=== PATIENT | male | born 1950 | race Caucasian/White ===

== ENCOUNTER 2019-04-30 11:25 | Inpatient (IN) ==
[2019-04-30] MEDS ORDERED: *HR* Midazolam HCl 5 MG/5 ML VIAL IVP ONE ×2 (12:38→13:04)
[2019-04-30] MEDS ORDERED: Simethicone 40 MG/0.6 ML MLS IR ONE (12:38)
[2019-04-30] MEDS ORDERED: *HR* FentaNYL (PF) 100 MCG/2 ML VIAL IVP ONE (12:38)
[2019-04-30] MEDS ORDERED: Tetracaine/Benzocaine/Butamben 1 SPRAY AEROSOL MM ONE (12:38)
--- NOTE | 2019-04-30 12:38 | History & Physical Report ---
Date of Encounter: 04/30/19 Time of Encounter: 12:37 24 Hour HP Update - Instructions Instructions: If the History and Physical is less than 30 days old and was completed prior to A.M. admission and or procedure and has NOT been updated on calendar day of procedure please complete this update prior to performing procedure. - Update Patient reports changes in Medical Condition: No Changes in examination, assessment, or condition: No Changes in Medication: No Preop tests/diagnostics Reviewed: Yes Surgery Remains Indicated: Yes Consent for Planned Operative Procedure(s) Verified: Yes
--- NOTE | 2019-04-30 12:38 | Pre-Sedation Evaluation ---
Pre-sedation evaluation - Pre-sedation checklist Date of procedure: 04/30/19 Procedure: egd / colonoscopy Recent Vitals: Last Vital Signs Temp 98.1 F 04/30/19 12:06 Pulse 79 04/30/19 12:06 Resp 16 04/30/19 12:06 BP 129/69 04/30/19 12:06 Pulse Ox 100 04/30/19 12:06 H&P (including ROS) documented in medical record: Yes Previous reaction to sedatives/anesthetics: No Dietary Status: NPO after Midnight Dentition: dentures removed Possible difficult airway: No ASA Classification *see protocol: CLASS II-Mild systemic disease
[2019-04-30] MEDS ORDERED: 0.9 % Sodium Chloride 1,000 ML IVC SCH (12:45)
[2019-04-30] MEDS ORDERED: *HR* FentaNYL (PF) 100 MCG/2 ML VIAL ONE (13:05)
[2019-04-30] MEDS ORDERED: Ondansetron 4 MG/2 ML VIAL IVP PRN (15:37)
[2019-04-30] MEDS ORDERED: *HR* Promethazine 25 MG/ML VIAL IVP PRN (15:37)
[2019-04-30] MEDS ORDERED: Isovue-370 500 ML BOTTLE IVP ONE (15:37)
[2019-04-30] MEDS ORDERED: OXYCODONE Oral CONC 10 MG/0.5 ML ORAL.SYG SL PRN (15:37)
[2019-04-30] MEDS: Pantoprazole 40 MG VIAL IVP SCH (16:44)
[2019-05-01 07:07] LABS: Hemoglobin 8.3 g/dL (12.9-16.9); Immature Granulocytes % 0.2 % (0-4)
[2019-05-01 07:09] LABS: Basophils % 0.3 %; Eosinophils # 0.2 K/mcL (0.0-0.6); Eosinophils % 2.3 %; Hematocrit 29.5 % (37.5-50.1); Lymphocytes # 1.4 K/mcL (0.6-4.6); Lymphocytes % 21.6 %; Mean Corpuscular HGB Conc 28.1 g/dL (31.6-35.5); Mean Corpuscular Volume 71.3 fL (83.0-100.0); Mean Platelet Volume 10.2 fL (9.4-12.4); Monocytes # 0.7 K/mcL (0.0-1.3); Monocytes % 10.9 %; Neutrophils # 4.2 K/mcL (1.6-8.9); Platelet Count 204 K/mcL (140-400); Red Blood Count 4.14 M/mcL (4.19-5.50); Red Cell Distribution Width 17.1 % (11.5-14.5); Segmented Neutrophils % 64.7 %; White Blood Count 6.5 K/mcL (4.3-11.1)
[2019-05-01 07:15] LABS: INR 1.1; Prothrombin Time 12.1 Seconds (9.4-12.1)
[2019-05-01 07:17] LABS: Anisocytosis 1+ (Not Present); Hypochromasia Present (Not Present); Microcytosis Present (Not Present); Platelet Estimate Normal (Normal)
[2019-05-01] MEDS ORDERED: Nitroglycerin 0.4 MG TAB.SUBL SL PRN (07:19)
[2019-05-01 07:20] LABS: BUN/Creatinine Ratio 18 (6-26); Blood Urea Nitrogen 13 mg/dL (8-23); Calcium 8.9 mg/dL (8.6-10.3); Carbon Dioxide 22 mEq/L (23-29); Chloride 103 mEq/L (98-107); Glucose 96 mg/dL (70-105); Magnesium 2.1 mg/dL (1.6-2.6); Osmolality,Calculated 284 (280-300); Phosphorous 2.8 mg/dL (2.7-4.5); Potassium 3.9 mEq/L (3.5-5.1); Sodium 137 mEq/L (136-145); eGFR For African Americans > 60 (> 60); eGFR For Non-African Americans > 60 (> 60)
[2019-05-01] MEDS ORDERED: Isovue-370 500 ML BOTTLE IVP ONE ×2 (07:21)
[2019-05-01 07:30] LABS: Carcinoembryonic Antigen 1.1 ng/mL (Less than 5.0)
[2019-05-01] MEDS ORDERED: Isovue-370 500 ML BOTTLE PO ONE (07:31)
[2019-05-01 07:45] LABS: % Iron Saturation 5 % (20-55); Iron 22 mcg/dL (65-175); Transferrin 324 mg/dL (203-362)
[2019-05-01] MEDS: Pantoprazole 40 MG VIAL IVP SCH (08:19)
[2019-05-01] MEDS: Aspirin Enteric Coated 81 MG Tablet PO SCH (08:19)
--- NOTE | 2019-05-01 10:28 | General Surgery Progress Note ---
Date of Encounter: 05/01/19 Time of Encounter: 10:26 - Assessment and Plan (1) Colonic mass Current Visit: Yes Status: Acute Colonoscopy 04/30/[address] Correa is noted to have a fun gating partially obstructing medium-size mass at the ileocecal valve, circumferential, losing present, biopsies taken pathology pending. CT abd/pelvis w/IV and oral , CT chest w.IV contrast today consistent with colonoscopy, likely primary lesion in the cecum. No evidence for concern of metastatic lesions in the chest Clear liquid diet NPO at midnight positive IV fluids until NPO is resumed supportive care and discomfort management will plan for surgical intervention in the next 24 to 48 hours (2) ASHD (arteriosclerotic heart disease) Current Visit: Yes Status: Acute Per record review, left heart 2014 was with hundred percent occluded distal right coronary artery receiving collateral flow from the left, EF 55%, basal inferior hypo kinesis, 70% stenosis in the proximal LAD, which was supplying collateral flow to the inferior wall and in the distal right coronary artery, 50% stenosis in the mid-LAD, 60% in the 1st dyadic, nondominant circumflex 70% lesion in the proximal circumflex, 10% stenosis in the ramus, s/p CABG 2015 GENAO-LAD. Last saw Dr. Munir Ashton on 04/24/2019 who was planning a repeat left heart catheterization given patient's complaints of fatigue, exertional dyspnea and some precordial chest tightness. He did have an abnormal stress test in March 2018 which noted a medium-size fixed perfusion defect involving the inferior wall. His EKGs historically show evidence of old inferior myocardial infarction, left axis deviation, prolonged NC and some PACs. EKG was obtained on admission which is consistent with past findings. We will consult cardiology for cardiovascular risk stratification, pre,ann marie, and postoperative recommendations to optimize cardiovascular outcomes. Spoke with Dr.'s Rivera, who will evaluate the patient (3) Hyperlipidemia Current Visit: Yes Status: Acute Intolerant statins with perceived G.I. symptoms. On Zetia continue home meds Qualifiers: Hyperlipidemia type: unspecified Qualified Code(s): E78.5 - Hyperlipidemia, unspecified Subjective Patient reports: no new complaints, pain is less, voiding w/o difficulty, flatus, no bowel movement, afebrile Narrative: denies pain. States he is hungry Objective Vital Signs - Last 8 Hours Temp Pulse Resp BP Pulse Ox 05/01/19 08:13 97.5 F L 75 18 131/66 99 05/01/19 04:20 98.1 F 75 17 122/58 98 Intake and Output 04/30/19 05/01/19 05/01/19 23:59 07:59 15:59 Intake Total 700 / 1000 Output Total 600 / 600 Balance 700 / 1000 -600 / -600 Intake: IV Fluids 700 / 1000 0.9 % Sodium Chloride 1,000 ML 700 / 1000 @ 50 mls/hr IVC .Q20H [facility] Rx#: [id number] Output: Urine 600 / 600 Other: Weight 86 kg Blood Glucose* 99 95 Patient Weight 05/01/19 23:59 Weight 86 kg - General physical appearance well developed, well nourished, no distress, no pain - ENT atraumatic, normocephalic - Neck Neck exam: trachea midline - Respiratory normal expansion, clear to auscultation - Cardiovascular Cardiovascular exam: Present: RRR, murmurs - Abdomen Abdomen: Present: bowel sounds present, soft, non tender - Integumentary no rash - Neurologic normal sensation - Musculoskeletal normal gait, normal posture - Psychiatric oriented to time, oriented to person, oriented to place - Labs 05/01/19 06:09 05/01/19 06:09 Diabetes panel 05/01/19 Range/Units 06:09 Sodium 137 (136-145) mEq/L Potassium 3.9 (3.5-5.1) mEq/L Chloride 103 (98-107) mEq/L Carbon Dioxide 22 L (23-29) mEq/L BUN 13 (8-23) mg/dL Creatinine 0.74 (0.70-1.30) mg/dL Glucose 96 (70-105) mg/dL Calcium 8.9 (8.6-10.3) mg/dL Calcium panel 05/01/19 Range/Units 06:09 Calcium 8.9 (8.6-10.3) mg/dL Phosphorus 2.8 (2.7-4.5) mg/dL Pituitary panel 05/01/19 Range/Units 06:09 Sodium 137 (136-145) mEq/L Potassium 3.9 (3.5-5.1) mEq/L Chloride 103 (98-107) mEq/L Carbon Dioxide 22 L (23-29) mEq/L BUN 13 (8-23) mg/dL Creatinine 0.74 (0.70-1.30) mg/dL Glucose 96 (70-105) mg/dL Calcium 8.9 (8.6-10.3) mg/dL Adrenal panel 05/01/19 Range/Units 06:09 Sodium 137 (136-145) mEq/L Potassium 3.9 (3.5-5.1) mEq/L Chloride 103 (98-107) mEq/L Carbon Dioxide 22 L (23-29) mEq/L BUN 13 (8-23) mg/dL Creatinine 0.74 (0.70-1.30) mg/dL Glucose 96 (70-105) mg/dL Calcium 8.9 (8.6-10.3) mg/dL Consult Discharge Plan - Plan Referrals: Paulino Lucero MD [Primary Care Provider] -
[2019-05-01] MEDS: Iron Sucrose Complex 250 MG in 0.9 % Sodium Chloride 250 ML IVPB SCH (10:50)
--- NOTE | 2019-05-01 10:51 | Electrocardiograph Report ---
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
--- NOTE | 2019-05-01 12:23 | Cardiology Consult Note ---
<Varghese Javier R - Last Filed: 05/01/19 12:23> Date of Encounter: 05/01/19 Time of Encounter: 12:20 Assessment and Plan (1) Pre-operative cardiovascular examination Current Visit: Yes Status: Acute CAD s/p CABG in 2014. Colonoscopy 04/30/[address] Correa, noted to have a partially obstructing medium-size mass, likely primary lesion in the cecum. Pending surgical intervention in the next 24-48 hours. Pt has noted exertional dyspnea and fatigue for a prolonged period of time. Nuclear stress test completed 04/04/19 inferior infarct with ann marie infarct ischemia. Distal lateral and apical perfusion defects during stress may represent ischemia. Gated EF 61%. TTE 04/04/19 LVEF 60%. Mild LVDD. Normal RV. Mild WA. No phtn. LHC ordered on 04/24/19. Pre-procedure labs HGB was found to be 8.5, down from 13.7 in 2018. LHC was cancelled. He can push mow for ~15 minutes before he has to stop d/t dyspnea. Rare occasions of exertional chest pain relieved with nitro. ECG similar to 2014, evidence of prior inferior infarct. EF is preserved with normal wall motion. Given abnormal stress test pt is moderate-high risk for surgery from a cardiac standpoint for a necessary procedure. No further cardiac testing is warranted prior to surgery. He is not a candidate for LHC given anemia and colonic mass that needs surgical intervention. Recommend continuing BB perioperatively and 81mg ASA if able. Anticipate sign off once seen and evaluated by Dr. Reina. (2) CAD (coronary artery disease) Current Visit: Yes Status: Acute Hx CABG in 2014. As above. Continue BB, ASA, Zetia. Hx of statin intolerance. Qualifiers: Coronary Disease-Associated Artery/Lesion type: [place] artery [place] vs. transplanted heart: squ[place] heart Associated angina: angina presence unspecified Qualified Code(s): I25.10 - Atherosclerotic heart disease of [place] coronary artery without angina pectoris Discussion w patient/family: The assessment and plan as outlined above was discussed with the patient and/or family members who expressed understanding and agreement. All questions were answered. Thank you for involving us in the care of your patient. Please call with any questions. I will discuss all the above with Dr. Reina and make changes as necessary. History of Present Illness Consult date: 05/01/19 Requesting physician: Lorena Metzger Consult reason: pre-op Chief complaint: fatigue, exertional dyspnea History of present illness: Mr. Merino is a 68 year old male with PMH of CAD s/p CABG in 2014 (GENAO-LAD and VG-LCx), HTN, HLD intolerant to statins that had a colonoscopy 04/30/[address] Correa, noted to have a partially obstructing medium-size mass, likely primary lesion in the cecum. No evidence for concern of metastatic lesions in the chest. He is pending surgical intervention in the next 24-48 hours. Cardiology consulted for pre-op risk stratification. Pt has noted exertional dyspnea and f atigue for a prolonged period of time. Dr Ashton ordered an outpt stress test completed 04/04/19 that showed a medium sized, partially fixed perfusion defect involving inferior wall representing infarct with ann marie infarct ischemia. Distal lateral and apical perfusion defects during stress may represent ischemia. Gated EF 61%. TTE 04/04/19 LVEF 60%. Mild LVDD. Normal RV structure and function. Mild WA. No phtn. A left heart cath was initially ordered on 04/24/[address] Ashton, but on pre-procedure labs, HGB was found to be 8.5, down from 13.7 in 2018. LHC was cancelled and pt was referred to GI, who then did the colonoscopy and mass was found. Pt reports the most active thing he does is mow his grass. He can mow for ~15 minutes before he has to stop due to dyspnea. He reports rare occasions of exertional chest pain relieved with nitro. Past Med Surg Social Fam HX - Past Medical History Medical history: arthritis, coronary artery disease, hyperlipidemia - Past Surgical History Surgical History: appendectomy, cholecystectomy, coronary bypass (CABG), tonsillectomy Additional surgical history: vein stripping, bells palsy - Social History Smoking Status: Never smoker Medications and Allergies Aspirin [Lo-Dose Aspirin EC] 81 mg PO DAILY 04/30/19 [History] Ezetimibe [Zetia] 10 mg PO DAILY 04/30/19 [History] Lisinopril-HCTZ 10-12.5 [Prinzide 10-12.5] 1 tab PO BID 04/30/19 [History] Metoprolol Tartrate [Lopressor] 25 mg PO BID 04/30/19 [History] Nitroglycerin [Nitrostat] 0.4 mg SL Q5M PRN 04/30/19 [History] Allergy/AdvReac Type Severity Reaction Status Date / Time No Known Allergies Allergy Verified 04/30/19 17:58 All Systems Review: The remainder of the systems were reviewed and are negative - Constitutional Constitutional: fatigue - Cardiovascular Cardiovascular: as per HPI, chest pain with exertion, dyspnea on exertion - Respiratory Respiratory: dyspnea Physical Examination Vital Signs, Last 4 Hours Temp Pulse Resp BP Pulse Ox 05/01/19 11:47 98.1 F 64 18 115/68 98 Vital Signs Temp Pulse Resp BP Pulse Ox 05/01/19 11:47 98.1 F 64 18 115/68 98 05/01/19 08:13 97.5 F L 75 18 131/66 99 05/01/19 04:20 98.1 F 75 17 122/58 98 05/01/19 00:35 97.8 F 72 17 108/53 97 04/30/19 20:02 97.8 F 66 17 112/47 97 04/30/19 15:35 97.5 F L 64 16 112/58 100 04/30/19 15:33 97.5 F L 64 16 112/58 100 04/30/19 13:35 98.1 F 80 17 72/39 97 04/30/19 13:25 84 18 117/57 97 04/30/19 13:20 84 18 125/50 100 04/30/19 13:15 88 18 125/54 100 04/30/19 12:38 98.1 F 79 16 129/69 100 Intake and Output 04/30/19 05/01/19 05/01/19 23:59 07:59 15:59 Intake Total 700 / 1000 Output Total 600 / 600 Balance 700 / 1000 -600 / -600 Intake: IV Fluids 700 / 1000 0.9 % Sodium Chloride 1,000 ML 700 / 1000 @ 50 mls/hr IVC .Q20H [facility] Rx#: [id number] Output: Urine 600 / 600 Other: Weight 86 kg Blood Glucose* 99 95 83 Patient Weight 05/01/19 23:59 Weight 86 kg General: Conversant, No Apparent Distress HEENT: Atraumatic, Normocephaly, Mucus Membranes Moist Neck: No JVD, Normal carotid pulses Cardiac: Reg Rate and Rhythm, Normal S1 and S2, No Murmur Lungs: Normal Breath Sounds, No Wheeze, Rales, Rhonchi Neuro: Alert and responsive, No focal deficits noted Abdomen: Soft, Non-Tender Skin: No rashes noted on visualized skin Musculoskeletal: No Chest Wall Tenderness Extremities: No Clubbing, No Cyanosis, No Edema, Normal Pulses Results 05/01/19 06:09 05/01/19 06:09 Lab Results 05/01/19 05/01/19 05/01/19 06:09 06:09 06:09 WBC 6.5 Hgb 8.3 L Hct 29.5 L Plt Count 204 INR 1.1 Sodium 137 Potassium 3.9 Chloride 103 Carbon Dioxide 22 L BUN 13 Creatinine 0.74 Glucose 96 Calcium 8.9 Magnesium 2.1 Short CBC 05/01/19 Range/Units 06:09 WBC 6.5 (4.3-11.1) K/mcL Hgb 8.3 L (12.9-16.9) g/dL Hct 29.5 L (37.5-50.1) % Plt Count 204 (140-400) K/mcL Neutrophils # 4.2 (1.6-8.9) K/mcL BMP 05/01/19 Range/Units 06:09 Sodium 137 (136-145) mEq/L Potassium 3.9 (3.5-5.1) mEq/L Chloride 103 (98-107) mEq/L Carbon Dioxide 22 L (23-29) mEq/L BUN 13 (8-23) mg/dL Creatinine 0.74 (0.70-1.30) mg/dL Glucose 96 (70-105) mg/dL Calcium 8.9 (8.6-10.3) mg/dL Impressions Abdomen/Pelvis CT 05/01/19 09:45 IMPRESSION: 1. Mild wall thickening of the cecum, suspicious for a primary colonic neoplasm. Otherwise, no evidence of a colonic mass. No associated obstruction. 2. Top-normal size right lower quadrant lymph nodes, which measure 4-5 mm in size. These are either reactive or metastatic. 3. 1.2 cm well corticated lucency within the T4 vertebral body. This is favored to be an atypical hemangioma. Metastatic disease is felt to be unlikely. Consider further evaluation with contrast enhanced MRI or bone scan to confirm a benign etiology. D/ / 05/01/2019 11:25:17 Paulino William MD / gloria Interpreting Provider: Paulino William MD Chest CT 05/01/19 09:45 IMPRESSION: 1. Mild wall thickening of the cecum, suspicious for a primary colonic neoplasm. Otherwise, no evidence of a colonic mass. No associated obstruction. 2. Top-normal size right lower quadrant lymph nodes, which measure 4-5 mm in size. These are either reactive or metastatic. 3. 1.2 cm well corticated lucency within the T4 vertebral body. This is favored to be an atypical hemangioma. Metastatic disease is felt to be unlikely. Consider further evaluation with contrast enhanced MRI or bone scan to confirm a benign etiology. D/ / 05/01/2019 11:25:17 Paulino William MD / gloria Interpreting Provider: Paulino William MD Active Medications Aspirin (Aspirin Ec) 81 mg PO DAILY WIN Stop: 10/31/19 09:01 Last Admin: 05/01/19 08:19 Dose: 81 mg Documented by: Lisinopril/HCTZ (Prinzide 10-12.5) 1 each PO BID WIN Stop: 10/31/19 09:01 Last Admin: 05/01/19 08:19 Dose: 1 each Documented by: Iron Sucrose 250 mg/ Sodium (Chloride) 262.5 mls @ 130 mls/hr IVPB DAILY WIN Stop: 05/05/19 09:16 Last Admin: 05/01/19 10:50 Dose: 130 mls/hr Documented by: Sodium Chloride (0.9 % Sodium Chloride) 1,000 mls @ 100 mls/hr IVC .Q10H WIN Stop: 11/01/19 00:02 Metoprolol Tartrate (Lopressor) 25 mg PO BID WIN Stop: 10/31/19 09:01 Last Admin: 05/01/19 08:19 Dose: 25 mg Documented by: Nitroglycerin (Nitroglycerin) 0.4 mg SL Q5MPRN PRN PRN Reason: Chest Pain Stop: 10/31/19 07:20 Ondansetron HCl (Zofran) 4 mg IVP Q6HR PRN PRN Reason: Nausea And Vomiting Stop: 10/30/19 15:38 Oxycodone HCl (Oxycodone Oral Conc) 5 mg SL Q4HR PRN; Protocol PRN Reason: mild to moderate pain Stop: 10/30/19 15:38 Pantoprazole Sodium (Protonix) 40 mg IVP DAILY WIN Stop: 10/30/19 15:38 Last Admin: 05/01/19 08:19 Dose: 40 mg Documented by: Promethazine HCl (Phenergan) 12.5 mg IVP Q6HR PRN PRN Reason: Nausea And Vomiting Stop: 10/30/19 15:38 - Imaging and Cardiology Stress Test: report reviewed Echo: report reviewed - EKG Interpretation EKG results cardiology: personally reviewed Consult Discharge Plan - Plan Referrals: Paulino Lucero MD [Primary Care Provider] - <Nettie Reina - Last Filed: 05/01/19 14:34> Date of Encounter: 05/01/19 - Attending Attestation I examined this patient and my medical decision-making was reviewed with the C RECOVERY ASSISTANT. I agree with the documented findings, disposition and treatment plan. Mr. Merino was recently diagnosed with a partially obstructing mass, likely a lesion in the cecum concerning for malignancy. This was discovered incidentally in setting of cardiac workup demonstrating abnormal stress testing. Patient denies active chest pain. Endorses dyspnea and fatigue. LV systolic function remains normal. At this time, we recommend proceeding with surgery with known intermediate to high risk for cardiac event. Further cardiac testing will delay patient's necessary surgery to remove a potential malignancy and increase his risk of a bleeding event in setting of new anemia. This was discussed with the patient and his family at the bedside. Patient expressed understanding and agreement. Recommend continuing BB perioperatively and aspirin if able. Please call with questions. Signing off. Assessment and Plan Discussion w patient/family: The assessment and plan as outlined above was discussed with the patient and/or family members who expressed understanding and agreement. All questions were answered. Thank you for involving us in the care of your patient. Please call with any questions. History of Present Illness History of present illness: Mr. Merino is a 68 year old male All Systems Review: The remainder of the systems were reviewed and are negative Physical Examination Vital Signs, Last 4 Hours Temp Pulse Resp BP Pulse Ox 05/01/19 11:47 98.1 F 64 18 115/68 98 Results 05/01/19 06:09 05/01/19 06:09 Lab Results 05/01/19 05/01/19 05/01/19 06:09 06:09 06:09 WBC 6.5 Hgb 8.3 L Hct 29.5 L Plt Count 204 INR 1.1 Sodium 137 Potassium 3.9 Chloride 103 Carbon Dioxide 22 L BUN 13 Creatinine 0.74 Glucose 96 Calcium 8.9 Magnesium 2.1
--- NOTE | 2019-05-01 17:26 | Anesthesia Evaluation PreOp ---
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 Any Significant HX Other Medical History: Bleeding (BLOOD LOSS ANEMIA), Other (FUNGATING ILEOCECAL TUMOR) Anesthesia History: No Prior Anesthetic Complications, Past Anesthesia Medications and Allergies Aspirin [Lo-Dose Aspirin EC] 81 mg PO DAILY 04/30/19 [History] Ezetimibe [Zetia] 10 mg PO DAILY 04/30/19 [History] Lisinopril-HCTZ 10-12.5 [Prinzide 10-12.5] 1 tab PO BID 04/30/19 [History] Metoprolol Tartrate [Lopressor] 25 mg PO BID 04/30/19 [History] Nitroglycerin [Nitrostat] 0.4 mg SL Q5M PRN 04/30/19 [History] Allergy/AdvReac Type Severity Reaction Status Date / Time No Known Allergies Allergy Verified 04/30/19 17:58 - Meds/Allergy Pre-op Review Medications Reviewed: Yes Allergies Reviewed: Yes Beta Blockers on Current Med List: Yes (METOPROLOL 25 MG BID) If Beta Blockers taken, Date/Time (Last Dose taken): SEE [facility] Anesthesia Results - Labs 05/01/19 06:09 05/01/19 06:09 Laboratory Tests 05/01/19 05/01/19 06:09 06:09 PT 12.1 INR 1.1 Calcium 8.9 Phosphorus 2.8 Magnesium 2.1 - Imaging EKG: report reviewed (SINUS RHYTHM, PATTERN CONSISTENT WITH PULMONARY DISEASE, INFERIOR MYOCARDIAL INFARCTION, PROBABLY OLD WITH POSTERIOR EXTENSION) Anesthesia Exam Vital Signs/O2 Sat, Most Current Temp Pulse Resp BP Pulse Ox 98.3 F 63 16 101/55 98 05/01/19 16:41 05/01/19 16:41 05/01/19 16:41 05/01/19 16:41 05/01/19 16:41 Weight: 86 KG - BMI 27 NPO (# of Hours): >MN - HEENT Mallampati: III Teeth: Normal Denture Type: Upper: Partial (SINGLE TOOTH ) - Cardiac Rhythm: Regular - Pulmonary Breath Sounds: bilateral Clear Respiratory Effort: Symmetrical Anesthesia Assess/Plan ASA Score: 3 Anesthetic Plan: General Autologous Blood: Yes (POSSIBLE) Monitoring Plan: Standard Monitors, A-Line (POSSIBLE) Recovery Plan: PACU Anes Supervising Prov Stmt: AM CBC & T&S ORDERED
[2019-05-02] MEDS: 0.9 % Sodium Chloride 1,000 ML IVC SCH ×3 (00:15→20:35)
[2019-05-02 05:22] LABS: Hematocrit 27.5 % (37.5-50.1); Mean Corpuscular HGB Conc 29.1 g/dL (31.6-35.5); Mean Corpuscular Hemoglobin 20.5 pg (28.0-33.3); Mean Corpuscular Volume 70.5 fL (83.0-100.0); Mean Platelet Volume 10.7 fL (9.4-12.4); Platelet Count 231 K/mcL (140-400); Red Cell Distribution Width 17.2 % (11.5-14.5); White Blood Count 6.1 K/mcL (4.3-11.1)
[2019-05-02] MEDS: Pantoprazole 40 MG VIAL IVP SCH (08:18)
[2019-05-02] MEDS: Aspirin Enteric Coated 81 MG Tablet PO SCH (08:19)
[2019-05-02] MEDS: Iron Sucrose Complex 250 MG in 0.9 % Sodium Chloride 250 ML IVPB SCH (08:20)
[2019-05-02] MEDS ORDERED: *HR* Propofol 200 MG/20 ML VIAL IVP ONE (14:24)
[2019-05-02] MEDS ORDERED: *HR* FentaNYL (PF) 100 MCG/2 ML VIAL ONE (14:24)
[2019-05-02] MEDS ORDERED: Dexamethasone 4 MG/ML VIAL ONE (14:25)
[2019-05-02] MEDS ORDERED: Lidocaine -MPF 2% 2 ML VIAL ONE ×2 (14:25→16:11)
[2019-05-02] MEDS ORDERED: Ondansetron 4 MG/2 ML VIAL ONE (14:25)
[2019-05-02] MEDS ORDERED: *HR* Succinylcholine 200 MG/10 ML VIAL IVP ONE (14:25)
[2019-05-02] MEDS ORDERED: *HR* Rocuronium Bromide 50 MG/5 ML VIAL ONE (14:25)
[2019-05-02] MEDS ORDERED: *HR* Phenylephrine 10 MG/ML VIAL ONE (14:25)
[2019-05-02] MEDS ORDERED: Heparin 1,000 UNITS/500 mL 500 ML ONE (14:32)
[2019-05-02] MEDS ORDERED: CefOXitin 2,000 MG VIAL ONE (15:45)
[2019-05-02] MEDS ORDERED: cefOXitin 2,000 MG in Water for inj. (sterile) 20 ML 20 ML IVP ONE (15:48)
[2019-05-02] MEDS ORDERED: Neostigmine Methylsulfate 3 MG/3 ML SYRINGE ONE (17:15)
[2019-05-02] MEDS ORDERED: Nitroglycerin 0.4 MG TAB.SUBL SL PRN (18:46)
[2019-05-02] MEDS ORDERED: Ondansetron 4 MG/2 ML VIAL IVP PRN (18:46)
[2019-05-02] MEDS ORDERED: *HR* FentaNYL (PF) 100 MCG/2 ML VIAL IVP PRN (18:46)
[2019-05-02] MEDS ORDERED: Acetaminophen IV 1,000 MG/100 ML INFUS..BTL IVPB ONE (18:46)
[2019-05-02] MEDS ORDERED: *HR* Promethazine 25 MG/ML VIAL IVP PRN (18:46)
[2019-05-02] MEDS: *HR* HYDROmorphone (PF) 1 MG/ML SYRINGE IVP PRN ×2 (18:57→19:13)
[2019-05-02] MEDS: OXYCODONE Oral CONC 10 MG/0.5 ML ORAL.SYG SL PRN (20:33)
--- NOTE | 2019-05-02 20:46 | Anesthesia Evaluation Post Op ---
Date of Encounter: 05/02/19 Time of Encounter: 19:28 - Discharge PostOp Status: Transfer Patient to floor (Patient's vital signs have been reviewed. Patient is stable postoperatively and has adequately recovered from anesthesia. Patient is determined to have stable airway patency and respiratory function including respiratory rate and oxygen saturation. Patient has a stable heart rate, blood pressure and adequate hydration. Patients mental status is acceptable. Patients temperature is appropriate. Pain and nausea are adequately controlled.)
[2019-05-02] MEDS: Ketorolac 15 MG/ML VIAL IVP SCH (23:10)
[2019-05-03] MEDS: Ketorolac 15 MG/ML VIAL IVP SCH ×4 (05:44→23:59)
[2019-05-03] MEDS: *HR* Heparin 5,000 UNIT/ML VIAL SQ SCH ×2 (05:44→18:38)
[2019-05-03] MEDS: 0.9 % Sodium Chloride 1,000 ML IVC SCH (05:46)
[2019-05-03] MEDS: Aspirin Enteric Coated 81 MG Tablet PO SCH (09:24)
[2019-05-03] MEDS: Pantoprazole 40 MG VIAL IVP SCH (09:25)
[2019-05-03] MEDS: Iron Sucrose Complex 250 MG in 0.9 % Sodium Chloride 250 ML IVPB SCH (09:28)
[2019-05-03] MEDS ORDERED: 0.9 % Sodium Chloride 1,000 ML IVC SCH (10:11)
--- NOTE | 2019-05-03 10:12 | General Surgery Progress Note ---
Date of Encounter: 05/03/19 Time of Encounter: 10:08 - Assessment and Plan (1) Colonic mass Current Visit: Yes Status: Acute Colonoscopy 04/30/[address] Correa is noted to have a fun gating partially obstructing medium-size mass at the ileocecal valve, circumferential, losing present, biopsies taken pathology pending. CT abd/pelvis w/IV and oral , CT chest w.IV contrast today consistent with colonoscopy, likely primary lesion in the cecum. No evidence for concern of metastatic lesions in the chest. POD #1 robotic right colon resection. He is recovering as expected. VSS. Labs are pending. Plan: Continue supportive care and discomfort management while awaiting full return of bowel function Continue G.I. and DVT prophylaxis Incentive spirometry 10 times every hour while awake Out of bed to chair TID, do not offer meal trays while in the bed Activity as tolerated, ambulate TID. May saline lock IV for ambulation decrease IV fluids to prevent fluid overload Apply ice 20 minutes on 20 minutes off as needed (2) ASHD (arteriosclerotic heart disease) Current Visit: Yes Status: Acute Per record review, left heart 2014 was with hundred percent occluded distal right coronary artery receiving collateral flow from the left, EF 55%, basal inferior hypo kinesis, 70% stenosis in the proximal LAD, which was supplying collateral flow to the inferior wall and in the distal right coronary artery, 50% stenosis in the mid-LAD, 60% in the 1st dyadic, nondominant circumflex 70% lesion in the proximal circumflex, 10% stenosis in the ramus, s/p CABG 2014 GENAO-LAD. Last saw Dr. Munir Ashton on 04/24/2019 who was planning a repeat left heart catheterization given patient's complaints of fatigue, exertional dyspnea and some precordial chest tightness. He did have an abnormal stress test in March 2018 which noted a medium-size fixed perfusion defect involving the inferior wall. His EKGs historically show evidence of old inferior myocardial infarction, left axis deviation, prolonged PA and some PACs. He is stable at this time. Denies signs or symptoms. Continue home medications (3) Hyperlipidemia Current Visit: Yes Status: Acute Intolerant statins with perceived G.I. symptoms. On Zetia continue home meds Qualifiers: Hyperlipidemia type: unspecified Qualified Code(s): E78.5 - Hyperlipidemia, unspecified Subjective Patient reports: no new complaints, feels better, still having pain, tolerating liquids well, voiding w/o difficulty, no flatus, no bowel movement, afebrile Objective Vital Signs - Last 8 Hours Temp Pulse Resp BP Pulse Ox 05/03/19 07:10 98.4 F 77 18 105/53 100 05/03/19 02:45 98.5 F 70 15 96/55 96 Intake and Output 05/02/19 05/03/19 05/03/19 23:59 07:59 15:59 Intake Total 120 / 970 1120 / 1512 392 / 1512 Output Total 265 / 265 Balance -145 / 705 1120 / 1512 392 / 1512 Intake: IV Fluids 120 / 970 1000 / 1392 392 / 1392 0.9 % Sodium Chloride 1,000 ML 1000 / 1392 392 / 1392 @ 100 mls/hr IVC .Q10H WIN Rx#: [id number] Mefoxin 2,000 MG In Water for inj. (sterile) 20 ML @ 300 mls/ hr IVP ONCE ONE Rx#:[id number] Ofirmev 1,000 mg/100 ml 1,000 100 / 100 mg In 100 ml @ 400 mls/hr IVPB ONCE ONE Rx#:[id number] Oral 0 / 0 120 / 120 Output: Estimated Blood Loss 15 / Urine Amount (Catheter) 250 / 250 Other: Meal npo - General physical appearance well developed, well nourished, no distress - Eyes normal ocular movement - ENT atraumatic, normocephalic - Neck Neck exam: trachea midline - Respiratory normal expansion, normal respiratory effort, clear to auscultation - Cardiovascular Cardiovascular exam: Present: RRR, murmurs - Abdomen Abdomen: Present: bowel sounds present, soft, tender (expected postoperative) - Incision Incision: Present: clean and dry, intact - Integumentary no rash - Neurologic normal coordination, normal sensation - Musculoskeletal normal posture - Psychiatric oriented to time, oriented to person, oriented to place, speech is normal, memory intact - Labs 05/02/19 04:07 05/01/19 06:09 Consult Discharge Plan - Plan Referrals: Paulino Lucero MD [Primary Care Provider] -
[2019-05-03 10:45] LABS: Hematocrit 28.7 % (37.5-50.1); Hemoglobin 8.1 g/dL (12.9-16.9); Lymphocytes # 0.8 K/mcL (0.6-4.6); Mean Corpuscular HGB Conc 28.2 g/dL (31.6-35.5); Mean Corpuscular Hemoglobin 20.4 pg (28.0-33.3); Mean Corpuscular Volume 72.3 fL (83.0-100.0); Mean Platelet Volume 9.5 fL (9.4-12.4); Platelet Count 177 K/mcL (140-400); Red Blood Count 3.97 M/mcL (4.19-5.50); Red Cell Distribution Width 17.5 % (11.5-14.5); White Blood Count 8.4 K/mcL (4.3-11.1)
[2019-05-03 11:01] LABS: BUN/Creatinine Ratio 18 (6-26); Blood Urea Nitrogen 14 mg/dL (8-23); Calcium 8.2 mg/dL (8.6-10.3); Carbon Dioxide 22 mEq/L (23-29); Chloride 103 mEq/L (98-107); Glucose 120 mg/dL (70-105); Magnesium 1.9 mg/dL (1.6-2.6); Osmolality,Calculated 278 (280-300); Potassium 3.9 mEq/L (3.5-5.1); Sodium 133 mEq/L (136-145); eGFR For African Americans > 60 (> 60); eGFR For Non-African Americans > 60 (> 60)
[2019-05-03 11:51] LABS: Monocytes # 0.3 K/mcL (0.0-1.3); Neutrophils # 7.2 K/mcL (1.6-8.9); Platelet Estimate Normal (Normal)
[2019-05-03 11:52] LABS: Anisocytosis 1+ (Not Present); Hypochromasia Present (Not Present); Ovalocytes 1+ (Not Present); Polychromasia 1+ (Not Present)
[2019-05-03] MEDS: OXYCODONE Oral CONC 10 MG/0.5 ML ORAL.SYG SL PRN (13:30)
--- NOTE | 2019-05-03 22:13 | Operative Note ---
Date of procedure: 05/02/19 Pre-op diagnosis: Right colon cancer Post-op diagnosis: same Procedure: Robotic right colectomy Anesthesia: GETA Surgeon: Ignacio Correa Was there an psych assistant present: Yes Pantry Goods Maker: Taylor Toro Estimated blood loss (cc): 10 Specimen: Right colon Condition: stable Disposition: floor Procedure in Detail: After informed consent, the patient was taken the operating room placed in a supine position. After adequate sedation and anesthesia the abdomen was prepped and draped. 2 towel clips are placed the umbilicus and impression was inserted into the abdomen. Pneumoperitoneum was created. A 12 mm cannulas placed in the left mid axillary line below the level of the umbilicus. Once in place additional robotic cannulas were placed under direct visualization. A 5 mm cannulas placed in the left lower quadrant. Once all cannulas were in place robot was docked over the patient's right hip. The Caudets graspers were placed into cannulas on the right side of the abdomen. A vessel sealer was inserted into the abdomen as well. This point the terminal ileum and fold of Treves were identified and it was retracted anteriorly and cephalad. The ileocolic vessel was easily identified. A window was created in the retroperitoneum. The duodenum was easily identified and kept on harm's way. The right colic artery and vein were isolated and taken with a vessel sealer. The duodenum was kept out of harm's way as we transected the transverse mesocolon to an area approximate 5-8 cm distal to the tattoo that was distal to the tumor. This area was taken with a 60 mm blue stapling load. The same was performed for the terminal ileum. The retroperitoneal attachments were then taken down with a vessel sealer. Once the entire right colon had been freed from the retroperitoneal attachments it was placed over the right lobe of the liver. The terminal ileum was then approximated to the mid transverse colon. 2 enterotomies were created with scissors. The 60 mm stapling load was then inserted in each limb of the small bowel and large bowel secured in the nose fired. The common enterotomy was closed with 2 individual 2-0 silk sutures in running fashion. A portion of omentum was tacked over the anastomosis in the transverse colon omentum was then placed safely back over the anastomotic site. 2 needles which towards the falciform the robot was undocked and the needles were removed. A counterincision was made at the 12 mm camera site. The large bowel was removed through a wound protector. The tumor was within the specimen as it was palpated and brought out through this opening. Once completed the fascia was closed with loop PDS suture in running fashion it was injected with half percent Marcaine the same was performed on the 13 mm site as well as 8 mm sites. Aurelia were placed in the skin. The patient tolerated the procedure quite well.
[2019-05-04] MEDS: OXYCODONE Oral CONC 10 MG/0.5 ML ORAL.SYG SL PRN (04:38)
[2019-05-04] MEDS: Ketorolac 15 MG/ML VIAL IVP SCH (06:19)
[2019-05-04] MEDS: *HR* Heparin 5,000 UNIT/ML VIAL SQ SCH (06:20)
[2019-05-04] MEDS ORDERED: *HR* OxyCODONE/APAP 5/325 TABLET PO PRN (07:58)
--- NOTE | 2019-05-04 07:59 | Discharge Summary ---
Orders not resulted at time of discharge: Pending orders 05/01/19 17:54 Type and Screen [BBK] Routine 05/02/19 15:51 PRBC [Red Blood Cells] [BBK] Stat 05/02/19 18:42 Surgical Pathology [PTH] Routine 05/04/19 07:38 BMP [Basic Metabolic Panel] Stat Complete Blood Count [HEME] Stat Magnesium Stat Phosphorous Stat Date of Encounter: 05/04/19 Time of Encounter: 07:30 - Discharge Diagnosis (1) Colonic mass Priority: Primary Status: Acute (2) ASHD (arteriosclerotic heart disease) Priority: Secondary Status: Acute (3) Hyperlipidemia Priority: Secondary Status: Acute Qualifiers: Hyperlipidemia type: unspecified Qualified Code(s): E78.5 - Hyperlipidemia, unspecified General Surgery Exam Initial Vital Signs Temp Pulse Resp BP Pulse Ox 98.1 F 79 16 129/69 100 04/30/19 12:06 04/30/19 12:06 04/30/19 12:06 04/30/19 12:06 04/30/19 12:06 - General physical appearance no distress, other (sitting upright in chair) - ENT atraumatic, normocephalic - Neck trachea midline - Respiratory normal expansion, normal respiratory effort, clear to auscultation - Cardiovascular Cardiovascular exam: Present: RRR - Abdomen Abdomen general surgery: Present: bowel sounds present, soft, tender (expected postoperative) Hernia: Present: none - Incision Incision: Present: clean and dry, intact - Integumentary Integumentary general surgery: Present: warm and dry - Neurologic Present: normal coordination, normal sensation - Musculoskeletal Present: normal posture - Psychiatric Psychiatric general surgery: Present: A&Ox3 - Hospital Course Hospital course: Mr. Merino is a 68 year old male who was admitted on 04/30/2019 following his colonoscopy with Dr. Correa which noted a fun gating mass. He was taken to the operating room on 05/01/2019 where he underwent a robotic right colectomy. His pathology remains pending. He is tolerating a diet without nausea or vomiting, vital signs are stable, return of bowel function has returned, pain is controll ed, and he desires to be discharged home. Per notes he will be discharged to his daughters home for approximately one week. We will begin discharge planning to home with a follow-up in the office in approximately 2 weeks - Time Spent with Patient Total time spent providing and/or coordinating discharge services: - Discharge Medications Prescriptions: New Docusate Sodium [Colace] 100 mg PO BID PRN #30 capsule PRN Reason: Contstipation Ibuprofen 800 mg PO Q8H PRN #30 tablet PRN Reason: Postsurgical pain OxyCODONE/APAP 5/325 [Percocet 5/325 MG] 1 each PO Q6HR PRN 7 Days #28 tablet PRN Reason: Pain Ondansetron ODT [Zofran ODT] 4 mg SL Q4HR PRN #15 tab.rapdis PRN Reason: Postsurgical nausea Continued Nitroglycerin [Nitrostat] 0.4 mg SL Q5M PRN PRN Reason: Chest Pain Metoprolol Tartrate [Lopressor] 25 mg PO BID Lisinopril-HCTZ 10-12.5 [Prinzide 10-12.5] 1 tab PO BID Ezetimibe [Zetia] 10 mg PO DAILY Aspirin [Lo-Dose Aspirin EC] 81 mg PO DAILY Home Medications: Aspirin [Lo-Dose Aspirin EC] 81 mg PO DAILY 04/30/19 [History] Ezetimibe [Zetia] 10 mg PO DAILY 04/30/19 [History] Lisinopril-HCTZ 10-12.5 [Prinzide 10-12.5] 1 tab PO BID 04/30/19 [History] Metoprolol Tartrate [Lopressor] 25 mg PO BID 04/30/19 [History] Nitroglycerin [Nitrostat] 0.4 mg SL Q5M PRN 04/30/19 [History] Docusate Sodium [Colace] 100 mg PO BID PRN #30 capsule 05/04/19 [Rx] Ibuprofen 800 mg PO Q8H PRN #30 tablet 05/04/19 [Rx] Ondansetron ODT [Zofran ODT] 4 mg SL Q4HR PRN #15 tab.rapdis 05/04/19 [Rx] OxyCODONE/APAP 5/325 [Percocet 5/325 MG] 1 each PO Q6HR PRN 7 Days #28 tablet 05/04/19 [Rx] Allergies/Adverse Reactions: Allergy/AdvReac Type Severity Reaction Status Date / Time No Known Allergies Allergy Verified 04/30/19 17:58 Date of admission: 04/30/19 15:32 Primary care physician: Paulino Lucero MD Consults: 05/01/19 10:49 Consult to Cardiology [CONS] Routine Comment: pt of Dr. Ashton Consulting Provider: Cardiology Brenna Reason for Consult: cardiovascular risk stratification, pre,ann marie, and postoperative recommendations to optimize cardiovascular outcomes; pt will go for colon resection in the next 1-3 days pending eval and CTs Time Notified: 10:51 Call Completed: Yes Discharging clinician: Ignacio Metzger) Anticipated date of discharge: 05/04/19 Labs on day of discharge: Labs from last 24 hours 05/03/19 05/03/19 10:23 10:23 WBC 8.4 RBC 3.97 L Hgb 8.1 L Hct 28.7 L MCV 72.3 L MCH 20.4 L MCHC 28.2 L RDW 17.5 H Plt Count 177 MPV 9.5 Seg Neutrophils % 70.0 Band Neutrophils % 16.0 H Lymphocytes % 10.0 Monocytes % 4.0 Neutrophils # 7.2 Lymphocytes # 0.8 Monocytes # 0.3 Platelet Estimate Normal Polychromasia 1+ A Hypochromasia Present A Anisocytosis 1+ A Ovalocytes 1+ A Sodium 133 L Potassium 3.9 Chloride 103 Carbon Dioxide 22 L BUN 14 Creatinine 0.77 Est GFR ( Amer) > 60 Est GFR (Non-Af Amer) > 60 BUN/Creatinine Ratio 18 Glucose 120 H Calculated Osmolality 278 L Calcium 8.2 L Phosphorus 4.0 Magnesium 1.9 - Impressions ITS Impressions Abdomen/Pelvis CT 05/01/19 09:45 IMPRESSION: 1. Mild wall thickening of the cecum, suspicious for a primary colonic neoplasm. Otherwise, no evidence of a colonic mass. No associated obstruction. 2. Top-normal size right lower quadrant lymph nodes, which measure 4-5 mm in size. These are either reactive or metastatic. 3. 1.2 cm well corticated lucency within the T4 vertebral body. This is favored to be an atypical hemangioma. Metastatic disease is felt to be unlikely. Consider further evaluation with contrast enhanced MRI or bone scan to confirm a benign etiology. D/ / 05/01/2019 11:25:17 [facility] MD / [facility] Inter[facility] Provider: Paulino William MD Chest CT 05/01/19 09:45 IMPRESSION: 1. Mild wall thickening of the cecum, suspicious for a primary colonic neoplasm. Otherwise, no evidence of a colonic mass. No associated obstruction. 2. Top-normal size right lower quadrant lymph nodes, which measure 4-5 mm in size. These are either reactive or metastatic. 3. 1.2 cm well corticated lucency within the T4 vertebral body. This is favored to be an atypical hemangioma. Metastatic disease is felt to be unlikely. Consider further evaluation with contrast enhanced MRI or bone scan to confirm a benign etiology. D/ / 05/01/2019 11:25:17 Paulino William MD / [facility] Interpreting Provider: Paulino William MD - Patient Status Disposition: Home, Self-Care Condition: Good Functional capacity at discharge: independent ambulation Overall status at discharge: patient is progressing back to baseline - Discharge Instructions Instructions: Colectomy (DC) Follow Up With: Darya Sosa CNP [Advanced Practice Nurse] - 05/15/19 3:00 pm (Please bring your photo ID, insurance card and any medications you are on. If you need to cancel please give a 24 hour notice. Thank you) Lorena Metzger CNP [Advanced Practice Nurse] - 05/18/19 9:45 am Additional Instructions: General Surgical Discharge Instructions 1. No pushing, pulling, or lifting greater than 15 lbs for 4 weeks. You may climb stairs as needed. 2. You may shower beginning today, but no tub baths, soaking, or swimming for 2 weeks. 3. You may resume driving when you are off narcotics and are safe to react in a car. 4. Take ibuprofen every 8 hours for discomfort. If this does not relieve discomfort, you may take the as needed Percocet. Take narcotics as directed. Do not take more narcotics then directed and do not share your narcotics with any other person. Do not drink alcohol while on narcotics. 5. Take stool softeners (Colace) or a water based laxative (Miralax) while taking narcotics. You may hold for loose stools. 6. Report any fevers greater than 100.5F, increase abdominal discomfort, drainage that looks like pus, increased redness or pain at the surgical site, or any vomiting. 7. Report any pain in the calves, shortness of breath, or rapid heartbeat. 8. Follow-up in the office as directed. His benjamin will be removed in the office at that time. You may cover your incisions with a dry dressing or leave them open to air pending your preference. 9. If you were prescribed antibiotics, do not stop them without talking to your provider. - Diet and Activity Activity: increase activity as tolerated Diet: advance to your usual diet
[2019-05-04 08:00] LABS: Basophils % 0.1 %
[2019-05-04 08:02] LABS: Eosinophils % 0.1 %; Hematocrit 26.3 % (37.5-50.1); Hemoglobin 7.5 g/dL (12.9-16.9); Immature Granulocytes % 0.3 % (0-4); Lymphocytes # 0.7 K/mcL (0.6-4.6); Mean Corpuscular HGB Conc 28.5 g/dL (31.6-35.5); Mean Corpuscular Hemoglobin 20.5 pg (28.0-33.3); Mean Corpuscular Volume 71.9 fL (83.0-100.0); Monocytes # 0.5 K/mcL (0.0-1.3); Monocytes % 6.1 %; Neutrophils # 7.4 K/mcL (1.6-8.9); Platelet Count 206 K/mcL (140-400); Red Blood Count 3.66 M/mcL (4.19-5.50); Red Cell Distribution Width 18.6 % (11.5-14.5); Segmented Neutrophils % 85.4 %; White Blood Count 8.7 K/mcL (4.3-11.1)
[2019-05-04 08:14] LABS: BUN/Creatinine Ratio 17 (6-26); Blood Urea Nitrogen 13 mg/dL (8-23); Calcium 8.2 mg/dL (8.6-10.3); Carbon Dioxide 24 mEq/L (23-29); Chloride 102 mEq/L (98-107); Glucose 130 mg/dL (70-105); Magnesium 1.8 mg/dL (1.6-2.6); Osmolality,Calculated 276 (280-300); Phosphorous 1.7 mg/dL (2.7-4.5); Potassium 3.6 mEq/L (3.5-5.1); Sodium 132 mEq/L (136-145); eGFR For African Americans > 60 (> 60); eGFR For Non-African Americans > 60 (> 60)
[2019-05-04 08:27] LABS: Platelet Estimate Normal (Normal)
[2019-05-04 08:28] LABS: Anisocytosis 1+ (Not Present); Hypochromasia Present (Not Present)
[2019-05-04] MEDS: Iron Sucrose Complex 250 MG in 0.9 % Sodium Chloride 250 ML IVPB SCH (10:34)
[2019-05-04] MEDS: Pantoprazole 40 MG VIAL IVP SCH (10:36)
[2019-05-04 13:56] VITALS: BP 126/55
[2019-05-04] MEDS ORDERED: Ondansetron ODT 4 MG TAB.RAPDIS SL PRN (14:55)
[2019-05-04] MEDS: Aspirin Enteric Coated 81 MG Tablet PO SCH (15:09)
== END 2019-05-04 15:28 | disposition home or self-care (01) | DRG 330 ==
LOC: ENDPAV 11:25 → 2ANU 15:32 → 3ANU 05-02 19:58
PROVIDERS: ADMIT Surgery; ATTEND Surgery
PROC: ENDOCBX (2019-04-30 13:10)
PROC: ENDOEBX (2019-04-30 13:10)